=== PATIENT | female | born 1935 | race Caucasian/White ===

== ENCOUNTER → 2022-02-14 | Outpatient (CLI) | payer MEDICARE, OTHER, SELFPAY ==
--- NOTE | 2022-02-14 10:40 | ECHOD_ITS ---
Reason For Study: HTN Procedure This was a 2D Doppler, Color Flow transthoracic echocardiogram. Exam performed in department. Left Ventricle Normal LV size. Left ventricular systolic function is normal. The estimated ejection fraction is 60 %. Stage 1 diastolic dysfunction. No regional wall motion abnormalities noted. Right Ventricle Normal RV size. Normal systolic function. Atria Normal left atrium. Normal right atrium. Mitral Valve There is mild mitral annular calcification. Tricuspid Valve Normal tricuspid valve. Trivial tricuspid valve insufficiency. Aortic Valve Trisinus/trileaflet aortic valve. Pulmonic Valve Normal pulmonic valve. Great Vessels Normal aortic root. The pulmonary artery is normal size. Normal inferior vena cava. Pericardium/Pleural No pericardial effusion. MMode/2D Measurements & Calculations LVIDd: 3.9 cm IVSd: 1.2 cm Ao root diam: 3.4 cm LVIDs: 2.4 cm LVPWd: 1.1 cm RVDd: 2.6 cm FS: 39.3 % LAV(MOD-bp): 47.1 ml LVAd ap4: 20.8 cm2 SV(MOD-sp4): 32.7 ml LAV(MOD-bp) Indexed: 26.2 ml/m2 LVLd ap4: 6.6 cm LAV(MOD-sp2): 39.6 ml EDV(MOD-sp4): 54.0 ml LAV(MOD-sp4): 46.8 ml EDV(sp4-el): 55.3 ml LVAs ap4: 11.3 cm2 LVLs ap4: 5.2 cm ESV(MOD-sp4): 21.3 ml ESV(sp4-el): 21.0 ml EF(MOD-sp4): 60.6 % EF(sp4-el): 62.0 % SV(sp4-el): 34.3 ml LA A4 area: 18.8 cm2 LA dimension(2D): 3.7 cm RA A4 area: 10.7 cm2 Doppler Measurements & Calculations MV E max angus: 62.2 cm/sec Lat Peak E' Angus: 7.3 cm/sec Med Peak E' Angus: 6.2 cm/sec MV A max angus: 82.6 cm/sec E/E' lat: 8.6 E/E' med: 10.1 MV E/A: 0.75 Ao V2 max: 152.3 cm/sec LV V1 max: 104.1 cm/sec PA V2 max: 116.3 cm/sec Ao max P.3 mmHg LV V1 max P.3 mmHg Ao V2 mean: 106.9 cm/sec Ao mean P.0 mmHg Ao V2 VTI: 36.6 cm TR max angus: 210.8 cm/sec TR max P.8 mmHg ECHO/Echo Complete Interpretation Summary Normal LV size. Left ventricular systolic function is normal. The estimated ejection fraction is 60 %. Trivial tricuspid valve insufficiency. Stage 1 diastolic dysfunction. There is mild mitral annular calcification. Ordering Physician: Bahman Persaud Referring Physician: Garrison Chowdary Performed By: Ines Salazar, RDMARGOTH, RVT
== END | disposition home or self-care (01) ==
LOC: CVS 10:37
PROVIDERS: PCP Nurse Practitioner Family; Referring Provider Internal Medicine Cardiovascular Disease; Visit Provider Internal Medicine Cardiovascular Disease
DX: I44.7 Left bundle-branch block, unspecified (principal); I10 Essential (primary) hypertension
CPT/HCPCS: 93306